=== PATIENT | male | born 1970 | race Two or more races ===

== ENCOUNTER 2024-09-09 06:23 | Day surgery (SDC) | payer MEDICAID ==
[~2024-09-09] VITALS: Ht 170.2 cm; Wt 71.2 kg
[~2024-09-09 06:23] MED LIST: AMLO1TAB22 PO; CIPR500T4 PO; LORA-483 PO; METO-158 PO; ROSU20TA14 PO
[2024-09-09] MEDS ORDERED: IODIXANOL 320MG/ML 100ML BTL IV ONE (07:26)
[2024-09-09] MEDS ORDERED: HEPARIN IN NS 1000Units/500mL 1,500 ML ONE (07:27)
[2024-09-09] MEDS ORDERED: ANGIOMAX 250 MG VIAL IV ONE (07:46)
[2024-09-09] MEDS ORDERED: MIDAZOLAM HCL 2MG/2ML 2ml VIAL (1mg/ml) ONE (07:46)
[2024-09-09] MEDS ORDERED: VERAPAMIL 2.5MG/ML INJ 2ML VIAL IV ONE (07:46)
[2024-09-09] MEDS ORDERED: fentaNYL CITRATE 100 MCG/2 ML VL ONE (07:46)
[2024-09-09] MEDS ORDERED: SODIUM CHL 0.9% 0 ML ONE (07:47)
[2024-09-09] MEDS ORDERED: LIDOCAINE 2%HCL (LOCAL ANESTH.) INJ 20ML MDV ONE (07:47)
[2024-09-09] MEDS ORDERED: NITROGLYCERIN 50MG/250ML 250 ML IV ONE (07:48)
[2024-09-09] MEDS ORDERED: HEPARIN SODIUM (PORCINE) 5000 UNITS/ML 1ML VIAL ONE (08:10)
--- NOTE | 2024-09-09 08:18 | DVHOP2 ---
Operative Report Operative Report CARDIAC LAUNDRY ROOM ATTENDANT PROCEDURE REPORT [place], [place] Date of Service: 09/09/24 Palliative Care Nurse Practitioner: Miguelangel Walker MD PROCEDURES PERFORMED: Coronary angiogram, left heart catheterization, conscious sedation administration and supervision, less than 15 minutes; fluoroscopy use and interpretation. US guided vascular access saved to pacs system PREOPERATIVE DIAGNOSES: Abnormal stress test with CCS class 3 angina, POSTOP DIAGNOSIS: chest pain syndrome DESCRIPTION OF PROCEDURE: The patient or appropriate family signed informed consent understanding the risks, benefits and alternatives of the procedure, they wished to proceed. The patient was brought to the cardiac laborer cutting tool in n.p.o. state. The patient was prepped in a sterile fashion. Sedation was used per cardiac cath protocol. I administered 2 mL of 2% lidocaine to the right wris Pulse was weak after 1attempt I used US guidance to cannulate the R Radial artery with ease. t. With an antegrade front wall puncture. I cannulated the right radial artery and placed a 6-Citizen Of [place] Glidesheath slender. Next, an intra-arterial spasmolytic was administered. Next, a - 6[place] catheter andpigtail and were used for coronary angiogram and LVEDP measurement and pressure pullback. At the completion of procedure, all guides and wires were removed, and there were no immediate complications. 4000 U of IV heparin given. FINDINGS: RCA: Moderate vessel off the right sinus of Valsalva, there is no severe flow limiting stenosis. LEFT MAIN: Moderate size left main, it bifurcates into LAD and circumflex. no stenosis CIRCUMFLEX: Moderate caliber vessel coming off the left main with no flow limiting stenosis. LAD: LAD is a moderate caliber vessel coming of the left main. no stenosis LVEDP of 11 mmhg No severe epicardial CAD noted NOrmal LVEDP, normal BP during study MIGUELANGEL WALKER MD Sep 09, 2024 08:17
== END 2024-09-09 10:25 | disposition home or self-care (01) ==
LOC: CATH 06:23
PROVIDERS: ATTEND Internal Medicine
DX: R94.39 Abnormal result of other cardiovascular function study (principal); I20.89 Other forms of angina pectoris; R07.9 Chest pain, unspecified; R06.02 Shortness of breath; I10 Essential (primary) hypertension; I51.89 Other ill-defined heart diseases
CPT/HCPCS: 93458; C1894; J1644; J2250; J3010; Q9967; 99152